=== PATIENT | female | born 1940 | race Caucasian/White ===

== ENCOUNTER 2017-07-20 10:50 | Emergency (ER) | payer OTHER, MEDICARE ==
[~2017-07-20] VITALS: Ht 167.6 cm; Wt 56.4 kg
[~2017-07-20 10:50] MED LIST: ASPI81TA2 PO; CALC1CAP21 PO; FISH PO; GABA800T PO; LEVO125T50 PO; vitamin B12 IM
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
[2017-07-20 11:00] VITALS: BP 153/77; PULSE 95; RESP 18; O2SAT 97
[2017-07-20] MEDS ORDERED: 0.9% Sodium Chloride 1,000 ML IV ONE (11:13)
[2017-07-20] MEDS ORDERED: Ondansetron 2 mg/mL 2 mL Inj IVPUSH PRN (11:15)
[2017-07-20 11:19] LABS: BASOPHILS % (AUTO) 0.4 % (0-3); EOSINOPHILS % (AUTO) 0.9 % (0-5); MONOCYTES % (AUTO) 5.5 % (4-12); Mean Corpuscular Hemoglobin 30.9 pg (27.0-35.0); Mean Corpuscular Volume 92.1 fL (81-100); Platelet Count 277 bil/L (150-400)
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
[2017-07-20] MEDS: HYDROmorphone 0.5 mg/0.5 mL iSecure Syringe IVPUSH PRN ×2 (11:37→14:23)
[2017-07-20 11:46] LABS: INR 0.97 ratio
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
[2017-07-20 15:12] VITALS: BP 132/74; PULSE 68; RESP 14
== END 2017-07-20 15:20 | disposition home or self-care (01) ==
LOC: SED 10:50 → EDBD 10:50 → SED 15:20
DX: S20.211A Contusion of right front wall of thorax, initial encounter (principal); R91.1 Solitary pulmonary nodule; R55 Syncope and collapse; V49.40XA Driver injured in collision with unspecified motor vehicles in traffic accident, initial encounter; Y93.89 Activity, other specified; Y99.8 Other external cause status; Y92.410 Unspecified street and highway as the place of occurrence of the external cause; E03.9 Hypothyroidism, unspecified; Z90.49 Acquired absence of other specified parts of digestive tract; Z93.3 Colostomy status; Z85.42 Personal history of malignant neoplasm of other parts of uterus; Z90.710 Acquired absence of both cervix and uterus
CPT/HCPCS: 36415; 70450; 71010; 71260; 74177; 80053; 85025; 85610; 85730; 86850; 94799; 96361; 96374; 96375; 96376; 99285; G0390; J1170; J2405; J7030; Q9967